=== PATIENT | male | born 1945 | race Caucasian/White ===

== ENCOUNTER 2016-07-22 11:23 | Emergency (ER) | payer MEDICARE ==
[~2016-07-22] VITALS: Ht 177.8 cm; Wt 72.8 kg
[~2016-07-22 11:23] MED LIST: ALBU1.25 NEB; ALBU6.7H INH; ASPI-496 PO; ASPI325T4 PO; ATOR40TA78 PO; CARV6.252 PO; CEFD300C37 PO; DOXY100C2 PO; DOXY100T PO; FAMO20TA7 PO; FLUT1DIS3 INH; GUAI400T26 PO; IPRA0.2S35 INH; LEVO500T33 PO; LEVO750T26 PO; LISI-167 PO; METH4TAB2 PO; MONT10TA9 PO; PRED5TAB PO; SIMV40TA3 PO
[2016-07-22] MEDS ORDERED: ALBUTEROL/IPRATROPIUM 2.5MG/0.5MG, 3 ML NPPB SCH (12:00)
[2016-07-22] MEDS ORDERED: ALBUTEROL/IPRATROPIUM 2.5MG/0.5MG, 3 ML ONE ×2 (12:20→12:31)
[2016-07-22] MEDS ORDERED: SODIUM CHLORIDE 0.9% 1,000ML IVBOLUS ONE (12:30)
[2016-07-22] MEDS ORDERED: SODIUM CHLORIDE FLUSH 10ML SYR IVF ONE (12:30)
[2016-07-22 13:16] LABS: BLOOD UREA NITROGEN 8 mg/dL (7-18)
[2016-07-22 13:20] LABS: IS PT STATUS REG ER OR PRE ER? YES
[2016-07-22 14:10] VITALS: BP 103/65
== END 2016-07-22 14:20 | disposition home or self-care (01) ==
LOC: ED 13:07
DX: J44.1 Chronic obstructive pulmonary disease with (acute) exacerbation (principal); J44.0 Chronic obstructive pulmonary disease with (acute) lower respiratory infection; J20.8 Acute bronchitis due to other specified organisms; I10 Essential (primary) hypertension; I25.810 Atherosclerosis of coronary artery bypass graft(s) without angina pectoris; Z95.1 Presence of aortocoronary bypass graft; Z88.8 Allergy status to other drugs, medicaments and biological substances
CPT/HCPCS: 36415; 71010; 80048; 82040; 83605; 83880; 84484; 85025; 87040; 93005; 94640; 96360; 99285; J7030; J7512; J7620

== ENCOUNTER → 2017-02-18 | Outpatient (CLI) | payer MEDICARE ==
[~2017-02-18] MED LIST changes: +ASPI325T17 PO; -ASPI325T4 PO; +AZIT250T PO; +CARV12.52 PO; +DOCU-131 PO; +DOXY100T10 PO; +FLUT1BLS INH; -GUAI400T26 PO; +GUAI400T66 PO; +GUAI600T31 PO; +IPRA3AMP NPPB; +IPRA3AMP PO; -LEVO500T33 PO; +LEVO500T47 PO; +LISI-170 PO; +PRED20TA PO
[2017-02-18 11:03] LABS: HEMATOCRIT 42.2 % (39.2-51.8); HEMOGLOBIN 13.6 g/dL (13.7-18.0); WHITE BLOOD COUNT 8.3 x10^3/uL (3.4-10)
[2017-02-18 11:15] LABS: ASPARTATE AMINO TRANSFERASE 21 U/L (15-37); BLOOD UREA NITROGEN 9 mg/dL (7-18)
== END | disposition home or self-care (01) ==
LOC: STAR 10:04
PROVIDERS: ATTEND Surgery
DX: Z01.818 Encounter for other preprocedural examination (principal)
CPT/HCPCS: 36415; 80053; 85025; 93005

== ENCOUNTER 2017-02-25 11:18 | Inpatient (IN) | payer MEDICARE ==
[2017-02-18 11:09] VITALS: BP 111/72
[~2017-02-25] VITALS: Ht 177.8 cm; Wt 76.5 kg
[~2017-02-25 11:18] MED LIST changes: +BUPIVACAINE/PF 0.5% ONE; +EPINEPHRINE 1 MG/ML, 1ML ONE; +HEPARIN 1,000 UNITS/ML, 10ML ONE; +PROTAMINE SULFATE 10 MG/ML, 5ML ONE; +THROMBIN 20,000 UNIT VIAL TP ONE; +THROMBIN 5,000 UNIT VIAL TP ONE
[2017-02-25] MEDS ORDERED: LIDOCAINE 1%, 2ML ONE (11:40)
[2017-02-25] MEDS ORDERED: LACTATED RINGERS 1,000 ML IV SCH (11:53)
[2017-02-25] MEDS ORDERED: MIDAZOLAM 10MG/2 ML ONE (12:07)
[2017-02-25] MEDS ORDERED: FENTANYL PF 250 MCG/5ML ONE (12:07)
[2017-02-25] MEDS ORDERED: ROCURONIUM 10 MG/ML,10ML ONE (12:09)
[2017-02-25] MEDS ORDERED: ONDANSETRON 2MG/ML, 2ML ONE (12:09)
[2017-02-25] MEDS ORDERED: NEOSTIGMINE 1 MG/ML, 10ML ONE (12:09)
[2017-02-25] MEDS ORDERED: PROPOFOL 10 MG/ML, 20ML ONE (12:09)
[2017-02-25] MEDS ORDERED: SUCCINYLCHOLINE 20 MG/ML, 10ML ONE (12:09)
[2017-02-25] MEDS ORDERED: DEXAMETHASONE 4 MG/ML, 1ML ONE (12:09)
[2017-02-25] MEDS ORDERED: CEFAZOLIN 1,000 MG ONE (12:09)
[2017-02-25] MEDS ORDERED: GLYCOPYRROLATE 0.2MG/1ML, 5ML ONE (12:09)
[2017-02-25] MEDS ORDERED: ALBUTEROL/IPRATROPIUM 2.5MG/0.5MG, 3 ML NPPB PRN ×2 (13:30→17:30)
[2017-02-25] MEDS ORDERED: ONDANSETRON 2MG/ML, 2ML IVPush PRN (13:30)
[2017-02-25] MEDS ORDERED: MEPERIDINE/PF 25MG/0.5ML IVPush PRN (13:30)
[2017-02-25] MEDS ORDERED: FENTANYL PF 100 MCG/2ML IV PRN (13:30)
[2017-02-25] MEDS ORDERED: EPHEDRINE 50 MG/ML, 1ML IVPush PRN (13:30)
[2017-02-25] MEDS ORDERED: ALBUTEROL SULFATE 2.5 MG/3 ML NPPB PRN (13:30)
[2017-02-25] MEDS ORDERED: LABETALOL 5MG/ML, 20ML IV PRN (13:30)
[2017-02-25] MEDS ORDERED: HYDROcodone/APAP 7.5-325MG/15ML UDC PO PRN (13:30)
[2017-02-25] MEDS ORDERED: MIDAZOLAM 1 MG/ML, 2ML IV PRN (13:30)
[2017-02-25] MEDS ORDERED: DIAZEPAM 5 MG/ML, 2ML IVPush PRN (13:30)
[2017-02-25] MEDS ORDERED: HYDROmorphone 1 MG/ML, 1ML IV PRN (13:30)
[2017-02-25] MEDS ORDERED: hydrALAzine 20 MG/ML, 1ML IV PRN (13:30)
[2017-02-25] MEDS ORDERED: ACETAMINOPHEN 325 MG TABLET PO PRN (13:30)
[2017-02-25] MEDS ORDERED: PROMETHAZINE 25 MG/ML, 1ML IV PRN (13:30)
[2017-02-25] MEDS ORDERED: OXYcodone 5 MG/5 ML ORAL.SOL UDC PO PRN (13:30)
[2017-02-25] MEDS ORDERED: METOPROLOL 1 MG/ML, 5ML IV PRN (13:30)
[2017-02-25] MEDS: LACTATED RINGERS 1,000 ML IV SCH (14:37)
[2017-02-25] MEDS: ALBUTEROL/IPRATROPIUM 2.5MG/0.5MG, 3 ML NPPB SCH (19:49)
[2017-02-25] MEDS: MONTELUKAST 10 MG TABLET PO SCH (20:18)
[2017-02-25] MEDS: ATORVASTATIN 40 MG TABLET PO SCH (20:18)
[2017-02-25] MEDS: CEFAZOLIN PMX 1GM/50ML 50 ML IVPB SCH (20:18)
[2017-02-26 04:00] VITALS: BP 102/44
[2017-02-26] MEDS: LACTATED RINGERS 1,000 ML IV SCH ×2 (04:49→15:44)
[2017-02-26] MEDS: CEFAZOLIN PMX 1GM/50ML 50 ML IVPB SCH (04:49)
[2017-02-26] MEDS ORDERED: ALBUTEROL/IPRATROPIUM 2.5MG/0.5MG, 3 ML NEB SCH (09:00)
[2017-02-26] MEDS: LISINOPRIL 10 MG TABLET PO SCH (09:00)
[2017-02-26] MEDS: CARVEDILOL 6.25 MG TABLET PO SCH (09:00)
[2017-02-26] MEDS: ALBUTEROL/IPRATROPIUM 2.5MG/0.5MG, 3 ML NPPB SCH ×3 (09:15→14:15)
[2017-02-26] MEDS: ENOXAPARIN 40 MG/0.4 ML SQ SCH (10:30)
[2017-02-26 10:51] VITALS: BP 112/66
[2017-02-26 13:37] VITALS: BP 107/63
[2017-02-26] MEDS: HYDROcodone/APAP 5/325 TABLET PO PRN (15:48)
[2017-02-26 18:58] VITALS: BP 100/62
[2017-02-26] MEDS: ATORVASTATIN 40 MG TABLET PO SCH (20:29)
[2017-02-26] MEDS: MONTELUKAST 10 MG TABLET PO SCH (20:29)
[2017-02-27 01:17] VITALS: BP 130/66
[2017-02-27] MEDS: LACTATED RINGERS 1,000 ML IV SCH (06:37)
[2017-02-27 07:35] VITALS: BP 121/71
[2017-02-27] MEDS: ALBUTEROL/IPRATROPIUM 2.5MG/0.5MG, 3 ML NPPB SCH ×3 (08:05→15:35)
[2017-02-27] MEDS: ENOXAPARIN 40 MG/0.4 ML SQ SCH (08:49)
[2017-02-27] MEDS ORDERED: FLUTICASONE/VILANTEROL 200-25MCG/INH INH SCH (09:00)
[2017-02-27] MEDS: LISINOPRIL 10 MG TABLET PO SCH (09:16)
[2017-02-27] MEDS: CARVEDILOL 6.25 MG TABLET PO SCH (09:16)
[2017-02-27 15:10] VITALS: BP 97/53
[2017-02-27] MEDS: HYDROcodone/APAP 5/325 TABLET PO PRN (16:06)
== END 2017-02-27 17:45 | disposition home or self-care (01) | DRG 268 ==
LOC: ORIP 11:18 → INTOOBSV 11:18 → EDSTATUS 12:00 → CCU 16:13 → OBSVTOIN 02-26 10:58 → 4NOR 02-26 11:01
PROVIDERS: ADMIT Surgery; ATTEND Surgery
PROC: B4101ZZ Fluoroscopy of Abdominal Aorta using Low Osmolar Contrast (ICD-10-PCS; 2017-02-25)
PROC: 04V03D6 (ICD-10-PCS; principal; 2017-02-25 12:00)
DX: I71.4 Abdominal aortic aneurysm, without rupture (principal); J96.20 Acute and chronic respiratory failure, unspecified whether with hypoxia or hypercapnia; J44.9 Chronic obstructive pulmonary disease, unspecified; E78.5 Hyperlipidemia, unspecified; I73.9 Peripheral vascular disease, unspecified; Z86.79 Personal history of other diseases of the circulatory system; Z87.01 Personal history of pneumonia (recurrent); Z87.891 Personal history of nicotine dependence
CPT/HCPCS: 34802; 34812; 34825; 36200; 36415; 75952; 75953; 86850; 86900; 87081; 94640; G0378; J0171; J0690; J1100; J1644; J1650; J2250; J2405; J2704; J2710; J2720; J3010; J3490; J7620; C1751; C1768; C1769; C1894; C2628; J0330; J7120

== ENCOUNTER 2017-07-12 15:13 | Inpatient (IN) | payer MEDICARE ==
[~2017-07-12] VITALS: Ht 179.1 cm; Wt 67.8 kg
[~2017-07-12 15:13] MED LIST changes: -BUPIVACAINE/PF 0.5% ONE; -EPINEPHRINE 1 MG/ML, 1ML ONE; -HEPARIN 1,000 UNITS/ML, 10ML ONE; -PROTAMINE SULFATE 10 MG/ML, 5ML ONE; -THROMBIN 20,000 UNIT VIAL TP ONE; -THROMBIN 5,000 UNIT VIAL TP ONE
[2017-07-12] MEDS ORDERED: ALBUTEROL SULFATE 2.5 MG/3 ML NPPB SCH (16:00)
[2017-07-12] MEDS ORDERED: ALBUTEROL SULFATE 2.5 MG/3 ML ONE (16:02)
[2017-07-12] MEDS ORDERED: ASPI-515 PO (16:48)
[2017-07-12 17:09] LABS: BASOPHILS # (AUTO) 0.03 x10^3/uL (0-0.1); BASOPHILS % (AUTO) 0 % (0-1); EOSINOPHILS # (AUTO) 0.06 x10^3/uL (0-0.4); EOSINOPHILS % (AUTO) 1 % (1-7); LYMPHOCYTES # (AUTO) 0.66 x10^3/uL (1-3.4); LYMPHOCYTES % (AUTO) 7 % (22-44); MD NO; MEAN CORPUSCULAR HEMOGLOBIN 29.8 pg (27.5-34.5); MEAN CORPUSCULAR HGB CONC 32.2 g/dL (33.2-36.2); MEAN CORPUSCULAR VOLUME 92.4 fL (81-97); MEAN PLATELET VOLUME 7.4 fL (7.4-10.4); MONOCYTES # (AUTO) 0.73 x10^3/uL (0.2-0.8); MONOCYTES % (AUTO) 8 % (2-9); NEUTROPHILS # (AUTO) 7.54 x10^3/uL (1.8-6.8); NEUTROPHILS % (AUTO) 84 % (42-75); PLATELET COUNT 161 x10^3/uL (130-400); RED BLOOD COUNT 4.43 x10^6/uL (4.38-5.82); RED CELL DISTRIBUTION WIDTH 14.1 % (9.4-14.8)
[2017-07-12 17:18] LABS: ALBUMIN 3.2 g/dL (3.4-5.0); ANION GAP 1 mmol/L (5-15); CALCIUM 8.6 mg/dL (8.5-10.1); CHLORIDE 98 mmol/L (98-107); CREATININE 0.65 mg/dL (0.7-1.3)
[2017-07-12 17:32] VITALS: BP 113/68
[2017-07-12] MEDS ORDERED: ACETAMINOPHEN 325 MG TABLET PO PRN (18:30)
[2017-07-12] MEDS ORDERED: ENOXAPARIN 40 MG/0.4 ML SQ SCH (18:30)
[2017-07-12] MEDS ORDERED: hydrALAzine 20 MG/ML, 1ML IVPush PRN (18:30)
[2017-07-12] MEDS ORDERED: ONDANSETRON ODT 4 MG PO PRN (18:30)
[2017-07-12] MEDS ORDERED: ONDANSETRON 2MG/ML, 2ML IVPush PRN (18:30)
[2017-07-12] MEDS: methylPREDNISolone SOD SUCC 125 MG/2 ML IVPush SCH (18:44)
[2017-07-12 19:04] VITALS: BP 110/71
[2017-07-12] MEDS ORDERED: ALBUTEROL/IPRATROPIUM 2.5MG/0.5MG, 3 ML NPPB PRN (20:00)
[2017-07-12] MEDS ORDERED: ALBUTEROL/IPRATROPIUM 2.5MG/0.5MG, 3 ML ONE (20:04)
[2017-07-12] MEDS: ALBUTEROL/IPRATROPIUM 2.5MG/0.5MG, 3 ML NPPB SCH (20:08)
[2017-07-12] MEDS ORDERED: MONTELUKAST 10 MG TABLET PO SCH (21:00)
[2017-07-12] MEDS ORDERED: ATORVASTATIN 40 MG TABLET PO SCH (21:00)
[2017-07-13 01:46] VITALS: BP 90/51
[2017-07-13] MEDS: methylPREDNISolone SOD SUCC 125 MG/2 ML IVPush SCH ×2 (02:31→11:31)
[2017-07-13 05:53] LABS: BASOPHILS % (AUTO) 0 % (0-1); EOSINOPHILS % (AUTO) 0 % (1-7); LYMPHOCYTES # (AUTO) 0.33 x10^3/uL (1-3.4); LYMPHOCYTES % (AUTO) 8 % (22-44); MD NO; MEAN CORPUSCULAR HEMOGLOBIN 30.1 pg (27.5-34.5); MEAN CORPUSCULAR HGB CONC 32.7 g/dL (33.2-36.2); MEAN CORPUSCULAR VOLUME 91.8 fL (81-97); MEAN PLATELET VOLUME 7.8 fL (7.4-10.4); MONOCYTES # (AUTO) 0.06 x10^3/uL (0.2-0.8); MONOCYTES % (AUTO) 1 % (2-9); NEUTROPHILS # (AUTO) 3.83 x10^3/uL (1.8-6.8); NEUTROPHILS % (AUTO) 91 % (42-75); PLATELET COUNT 158 x10^3/uL (130-400); RED BLOOD COUNT 4.13 x10^6/uL (4.38-5.82)
[2017-07-13 06:00] LABS: ANION GAP 4 mmol/L (5-15); CALCIUM 8.8 mg/dL (8.5-10.1); CHLORIDE 97 mmol/L (98-107); CREATININE 0.61 mg/dL (0.7-1.3)
[2017-07-13] MEDS: ALBUTEROL/IPRATROPIUM 2.5MG/0.5MG, 3 ML NPPB SCH ×2 (07:46→11:19)
[2017-07-13] MEDS ORDERED: MAGNESIUM SULFATE PMX 2GM/50ML 50 ML IV ONE (08:00)
[2017-07-13] MEDS ORDERED: SODIUM CHLORIDE 0.9%, 500ML IVBOLUS ONE (08:00)
[2017-07-13 08:05] VITALS: BP 90/55
[2017-07-13] MEDS ORDERED: CARVEDILOL 6.25 MG TABLET PO SCH (09:00)
[2017-07-13] MEDS ORDERED: ASPIRIN 81 MG TABLET EC PO SCH (09:00)
[2017-07-13] MEDS ORDERED: LISINOPRIL 10 MG TABLET PO SCH (09:00)
[2017-07-13] MEDS ORDERED: PRED20TA PO (10:22)
[2017-07-13 13:56] VITALS: BP 107/62
== END 2017-07-13 14:54 | disposition home or self-care (01) | DRG 189 ==
LOC: ED 16:48 → EDIP 17:00 → 3NE 17:28
PROVIDERS: ADMIT Hospitalist; ATTEND Hospitalist
DX: J96.00 Acute respiratory failure, unspecified whether with hypoxia or hypercapnia (principal); I95.9 Hypotension, unspecified; E83.42 Hypomagnesemia; J44.1 Chronic obstructive pulmonary disease with (acute) exacerbation; Z99.81 Dependence on supplemental oxygen; E78.5 Hyperlipidemia, unspecified; F12.90 Cannabis use, unspecified, uncomplicated; I10 Essential (primary) hypertension; I25.10 Atherosclerotic heart disease of native coronary artery without angina pectoris; I25.2 Old myocardial infarction; Z86.79 Personal history of other diseases of the circulatory system; Z90.89 Acquired absence of other organs; Z95.1 Presence of aortocoronary bypass graft; Z87.01 Personal history of pneumonia (recurrent); Z87.891 Personal history of nicotine dependence
CPT/HCPCS: 36415; 71045; 80048; 82040; 83605; 83735; 84100; 85025; 93005; 94640; 99285; J1650; J7613; J7620; J2930; J3475; J7040; J7512

== ENCOUNTER 2017-07-15 13:43 | Inpatient (IN) | payer MEDICARE ==
[~2017-07-15] VITALS: Ht 177.8 cm; Wt 67.6 kg
[~2017-07-15 13:43] MED LIST changes: +ASPI-515 PO
[2017-07-15] MEDS ORDERED: ONDANSETRON ODT 4 MG ONE (13:54)
[2017-07-15] MEDS ORDERED: ONDANSETRON ODT 4 MG PO ONE (14:00)
[2017-07-15] MEDS ORDERED: SODIUM CHLORIDE FLUSH 10ML SYR IVF ONE (14:00)
[2017-07-15 14:23] LABS: BASOPHILS % (AUTO) 0 % (0-1); EOSINOPHILS % (AUTO) 0 % (1-7); LYMPHOCYTES # (AUTO) 0.66 x10^3/uL (1-3.4); LYMPHOCYTES % (AUTO) 6 % (22-44); MD NO; MEAN CORPUSCULAR HEMOGLOBIN 30.1 pg (27.5-34.5); MEAN CORPUSCULAR HGB CONC 32.3 g/dL (33.2-36.2); MEAN CORPUSCULAR VOLUME 93.3 fL (81-97); MEAN PLATELET VOLUME 7.7 fL (7.4-10.4); MONOCYTES # (AUTO) 0.16 x10^3/uL (0.2-0.8); MONOCYTES % (AUTO) 1 % (2-9); NEUTROPHILS # (AUTO) 10.04 x10^3/uL (1.8-6.8); NEUTROPHILS % (AUTO) 92 % (42-75); PLATELET COUNT 223 x10^3/uL (130-400); RED BLOOD COUNT 4.56 x10^6/uL (4.38-5.82); RED CELL DISTRIBUTION WIDTH 14.3 % (9.4-14.8)
[2017-07-15 14:30] LABS: ALBUMIN 3.3 g/dL (3.4-5.0); ANION GAP 4 mmol/L (5-15); CALCIUM 8.7 mg/dL (8.5-10.1); CHLORIDE 99 mmol/L (98-107)
[2017-07-15 14:37] LABS: ALANINE AMINOTRANSFERASE 34 U/L (12-78); ALKALINE PHOSPHATASE 78 U/L (45-117); BILIRUBIN,TOTAL 0.6 mg/dL (0.2-1.0); CREATININE 0.69 mg/dL (0.7-1.3); TOTAL PROTEIN 6.9 g/dL (6.4-8.2); TROPONIN I < 0.015 ng/mL (0.000-0.045)
[2017-07-15] MEDS ORDERED: IPRA0.2S35 INH (14:43)
[2017-07-15] MEDS ORDERED: ALBU0.63 NEB (14:43)
[2017-07-15] MEDS ORDERED: trelegy ellipta (14:43)
[2017-07-15] MEDS ORDERED: VANCOMYCIN PER PHARMACY MC ONE (15:00)
[2017-07-15] MEDS ORDERED: PIPERACILLIN/TAZO/PMX 4.5GM 100 ML IVPB ONE (15:00)
[2017-07-15] MEDS ORDERED: ALBUTEROL/IPRATROPIUM 2.5MG/0.5MG, 3 ML ONE (15:00)
[2017-07-15] MEDS ORDERED: VANCOMYCIN 1,500 MG in SODIUM CHLORIDE 0.9% 250 ML IV ONE (15:00)
[2017-07-15] MEDS ORDERED: SODIUM CHLORIDE FLUSH 10ML SYR IVF PRN (15:30)
[2017-07-15] MEDS ORDERED: hydrALAzine 20 MG/ML, 1ML IVPush PRN (17:00)
[2017-07-15] MEDS ORDERED: ONDANSETRON 2MG/ML, 2ML IVPush PRN (17:00)
[2017-07-15] MEDS ORDERED: ACETAMINOPHEN 325 MG TABLET PO PRN (17:00)
[2017-07-15] MEDS: methylPREDNISolone SOD SUCC 125 MG/2 ML IVPush SCH ×2 (17:20→22:38)
[2017-07-15] MEDS: CEFTRIAXONE PMX 1GM/50ML 50 ML IV SCH (17:29)
[2017-07-15] MEDS: ENOXAPARIN 40 MG/0.4 ML SQ SCH (17:29)
[2017-07-15] MEDS ORDERED: methylPREDNISolone SOD SUCC 125 MG/2 ML IVPush ONE (18:00)
[2017-07-15 18:01] VITALS: BP 102/64
[2017-07-15] MEDS: DOXYCYCLINE 100 MG in DEXTROSE 5% 250 ML IV SCH (18:08)
[2017-07-15] MEDS: ALBUTEROL/IPRATROPIUM 2.5MG/0.5MG, 3 ML NPPB SCH ×2 (19:00→23:00)
[2017-07-15 19:48] VITALS: BP 102/67
[2017-07-16 01:18] VITALS: BP 96/50
[2017-07-16] MEDS: ALBUTEROL/IPRATROPIUM 2.5MG/0.5MG, 3 ML NPPB SCH ×6 (03:15→21:30)
[2017-07-16] MEDS: methylPREDNISolone SOD SUCC 125 MG/2 ML IVPush SCH ×4 (05:16→23:04)
[2017-07-16] MEDS: DOXYCYCLINE 100 MG in DEXTROSE 5% 250 ML IV SCH ×2 (05:16→18:12)
[2017-07-16 05:30] LABS: MEAN CORPUSCULAR HEMOGLOBIN 29.9 pg (27.5-34.5); MEAN CORPUSCULAR HGB CONC 32.1 g/dL (33.2-36.2); MEAN PLATELET VOLUME 7.9 fL (7.4-10.4); PLATELET COUNT 159 x10^3/uL (130-400); RED BLOOD COUNT 4.21 x10^6/uL (4.38-5.82); RED CELL DISTRIBUTION WIDTH 14.1 % (9.4-14.8)
[2017-07-16 05:35] LABS: ANION GAP 2 mmol/L (5-15); CALCIUM 8.9 mg/dL (8.5-10.1); CHLORIDE 99 mmol/L (98-107); CREATININE 0.64 mg/dL (0.7-1.3)
[2017-07-16 05:44] LABS: THYROID STIMULATING HORMONE 0.135 mIU/L (0.358-3.740)
[2017-07-16 05:58] LABS: MD YES
[2017-07-16 06:00] LABS: BAND#(MANUAL) 3.26 x10^3/uL; BANDS%(MANUAL) 32 % (0-7); LYMPH#(MANUAL) 0.31 x10^3/uL (1-3.4); LYMPHS% (MANUAL) 3 % (22-44); MONOS% (MANUAL) 2 % (2-9); SEG#(MANUAL) 6.43 x10^3/uL (1.8-6.8); SEGS% (MANUAL) 63 % (42-75)
[2017-07-16 06:01] LABS: <PLATELET ESTIMATE> ADEQUATE; <PLT MORPHOLOGY> NORMAL PLT MORPH; <RBC MORPHOLOGY> NORMAL
[2017-07-16 09:30] VITALS: BP 93/58
[2017-07-16] MEDS: GUAIFENESIN ER 600 MG TABLET PO SCH ×2 (13:56→20:17)
[2017-07-16 14:56] VITALS: BP 110/66
[2017-07-16] MEDS: CEFTRIAXONE PMX 1GM/50ML 50 ML IV SCH (16:48)
[2017-07-16 18:39] VITALS: BP 102/58
[2017-07-16] MEDS: ENOXAPARIN 40 MG/0.4 ML SQ SCH (20:17)
[2017-07-17 00:42] VITALS: BP_SYST 105; BP_SYST 90; BP_DIAS 47; BP_DIAS 57
[2017-07-17] MEDS: ALBUTEROL/IPRATROPIUM 2.5MG/0.5MG, 3 ML NPPB SCH ×6 (01:30→23:22)
[2017-07-17] MEDS: DOXYCYCLINE 100 MG in DEXTROSE 5% 250 ML IV SCH ×2 (04:47→18:10)
[2017-07-17] MEDS: methylPREDNISolone SOD SUCC 125 MG/2 ML IVPush SCH ×4 (04:49→22:52)
[2017-07-17 05:05] LABS: BASOPHILS % (AUTO) 0 % (0-1); EOSINOPHILS % (AUTO) 0 % (1-7); LYMPHOCYTES % (AUTO) 3 % (22-44); MD NO; MEAN CORPUSCULAR HEMOGLOBIN 29.5 pg (27.5-34.5); MEAN CORPUSCULAR HGB CONC 32.1 g/dL (33.2-36.2); MONOCYTES # (AUTO) 0.42 x10^3/uL (0.2-0.8); MONOCYTES % (AUTO) 4 % (2-9); NEUTROPHILS # (AUTO) 11.07 x10^3/uL (1.8-6.8); NEUTROPHILS % (AUTO) 94 % (42-75); PLATELET COUNT 173 x10^3/uL (130-400); RED BLOOD COUNT 3.83 x10^6/uL (4.38-5.82)
[2017-07-17 05:19] LABS: ANION GAP 1 mmol/L (5-15); CALCIUM 9.3 mg/dL (8.5-10.1); CHLORIDE 98 mmol/L (98-107)
[2017-07-17 05:20] LABS: CREATININE 0.53 mg/dL (0.7-1.3)
[2017-07-17 08:05] VITALS: BP 104/62
[2017-07-17] MEDS: GUAIFENESIN ER 600 MG TABLET PO SCH ×2 (09:39→20:07)
[2017-07-17 14:12] VITALS: BP 119/68
[2017-07-17] MEDS: CEFTRIAXONE PMX 1GM/50ML 50 ML IV SCH (17:38)
[2017-07-17 20:00] VITALS: BP 125/72
[2017-07-17] MEDS: ENOXAPARIN 40 MG/0.4 ML SQ SCH (20:07)
[2017-07-18 01:25] VITALS: BP 103/53
[2017-07-18] MEDS: DOXYCYCLINE 100 MG in DEXTROSE 5% 250 ML IV SCH (04:38)
[2017-07-18] MEDS: methylPREDNISolone SOD SUCC 125 MG/2 ML IVPush SCH (04:38)
[2017-07-18] MEDS: ALBUTEROL/IPRATROPIUM 2.5MG/0.5MG, 3 ML NPPB SCH ×6 (04:48→22:30)
[2017-07-18 05:14] LABS: BASOPHILS % (AUTO) 0 % (0-1); EOSINOPHILS % (AUTO) 0 % (1-7); LYMPHOCYTES # (AUTO) 0.24 x10^3/uL (1-3.4); LYMPHOCYTES % (AUTO) 2 % (22-44); MD NO; MEAN CORPUSCULAR HGB CONC 32.4 g/dL (33.2-36.2); MEAN CORPUSCULAR VOLUME 92.5 fL (81-97); MEAN PLATELET VOLUME 7.9 fL (7.4-10.4); MONOCYTES # (AUTO) 0.35 x10^3/uL (0.2-0.8); MONOCYTES % (AUTO) 4 % (2-9); NEUTROPHILS # (AUTO) 9.32 x10^3/uL (1.8-6.8); NEUTROPHILS % (AUTO) 94 % (42-75); PLATELET COUNT 207 x10^3/uL (130-400); RED BLOOD COUNT 3.78 x10^6/uL (4.38-5.82); RED CELL DISTRIBUTION WIDTH 14.3 % (9.4-14.8)
[2017-07-18 05:25] LABS: ANION GAP 2 mmol/L (5-15); CALCIUM 8.6 mg/dL (8.5-10.1); CHLORIDE 97 mmol/L (98-107); CREATININE 0.46 mg/dL (0.7-1.3)
[2017-07-18 09:05] VITALS: BP 111/63
[2017-07-18] MEDS: GUAIFENESIN ER 600 MG TABLET PO SCH ×2 (09:13→22:41)
[2017-07-18] MEDS: SODIUM CHLORIDE 0.9% 1,000 ML IV SCH (09:13)
[2017-07-18 14:45] VITALS: BP 113/62
[2017-07-18] MEDS: CEFTRIAXONE PMX 1GM/50ML 50 ML IV SCH (16:51)
[2017-07-18 19:41] VITALS: BP 116/63
[2017-07-18] MEDS: DOXYCYCLINE 100MG CAP PO SCH (22:41)
[2017-07-18] MEDS: ENOXAPARIN 40 MG/0.4 ML SQ SCH (22:42)
[2017-07-19 01:08] VITALS: BP 95/40
[2017-07-19] MEDS: SODIUM CHLORIDE 0.9% 1,000 ML IV SCH ×2 (01:43→19:51)
[2017-07-19] MEDS: ALBUTEROL/IPRATROPIUM 2.5MG/0.5MG, 3 ML NPPB SCH ×6 (02:53→22:33)
[2017-07-19] MEDS: ASPIRIN 81 MG TABLET EC PO SCH (05:36)
[2017-07-19 09:45] VITALS: BP 110/56
[2017-07-19] MEDS: DOXYCYCLINE 100MG CAP PO SCH ×2 (09:47→21:07)
[2017-07-19] MEDS: GUAIFENESIN ER 600 MG TABLET PO SCH ×2 (09:47→21:07)
[2017-07-19 14:35] VITALS: BP 119/64
[2017-07-19] MEDS: CEFTRIAXONE PMX 1GM/50ML 50 ML IV SCH (17:03)
[2017-07-19 18:34] VITALS: BP 137/73
[2017-07-19] MEDS: ENOXAPARIN 40 MG/0.4 ML SQ SCH (21:07)
[2017-07-20 03:14] VITALS: BP 127/80
[2017-07-20] MEDS: ALBUTEROL/IPRATROPIUM 2.5MG/0.5MG, 3 ML NPPB SCH ×6 (03:44→23:00)
[2017-07-20] MEDS: ASPIRIN 81 MG TABLET EC PO SCH (05:54)
[2017-07-20 05:56] LABS: ANION GAP 3 mmol/L (5-15); CALCIUM 8.7 mg/dL (8.5-10.1); CHLORIDE 96 mmol/L (98-107); CREATININE 0.39 mg/dL (0.7-1.3)
[2017-07-20] MEDS: SODIUM CHLORIDE 0.9% 1,000 ML IV SCH (06:30)
[2017-07-20 06:38] VITALS: BP 102/64
[2017-07-20 07:17] LABS: FIO2 60 %
[2017-07-20] MEDS: GUAIFENESIN ER 600 MG TABLET PO SCH ×2 (08:32→21:17)
[2017-07-20] MEDS: DOXYCYCLINE 100MG CAP PO SCH ×2 (08:32→21:18)
[2017-07-20 12:15] VITALS: BP 116/68
[2017-07-20] MEDS: CEFTRIAXONE PMX 1GM/50ML 50 ML IV SCH (17:53)
[2017-07-20 20:26] VITALS: BP 137/66
[2017-07-20] MEDS: ENOXAPARIN 40 MG/0.4 ML SQ SCH (21:18)
[2017-07-21 00:42] VITALS: BP 115/71
[2017-07-21] MEDS: ALBUTEROL/IPRATROPIUM 2.5MG/0.5MG, 3 ML NPPB SCH ×6 (03:00→23:00)
[2017-07-21] MEDS: ASPIRIN 81 MG TABLET EC PO SCH (05:33)
[2017-07-21 06:55] VITALS: BP 100/61
[2017-07-21] MEDS: DOXYCYCLINE 100MG CAP PO SCH (09:00)
[2017-07-21] MEDS: GUAIFENESIN ER 600 MG TABLET PO SCH ×2 (09:00→21:26)
[2017-07-21 13:37] VITALS: BP 100/61
[2017-07-21] MEDS: NYSTATIN 500,000 UNITS/5 ML UDC PO SCH ×2 (15:22→17:49)
[2017-07-21 18:42] VITALS: BP 109/75
[2017-07-21] MEDS: ENOXAPARIN 40 MG/0.4 ML SQ SCH (21:26)
[2017-07-21] MEDS: SODIUM CHLORIDE 0.9% 1,000 ML IV SCH (21:42)
[2017-07-22] MEDS: ALBUTEROL/IPRATROPIUM 2.5MG/0.5MG, 3 ML NPPB SCH ×4 (03:00→14:30)
[2017-07-22 03:08] VITALS: BP 101/60
[2017-07-22] MEDS: ASPIRIN 81 MG TABLET EC PO SCH (06:12)
[2017-07-22] MEDS: NYSTATIN 500,000 UNITS/5 ML UDC PO SCH ×2 (06:13→11:23)
[2017-07-22 07:30] VITALS: BP 116/66
[2017-07-22] MEDS: GUAIFENESIN ER 600 MG TABLET PO SCH (08:49)
[2017-07-22] MEDS ORDERED: ASPI-621 PO (12:44)
[2017-07-22] MEDS ORDERED: NYST1000 PO (12:44)
[2017-07-22] MEDS ORDERED: CARV12.52 PO (12:44)
[2017-07-22 13:00] VITALS: BP 114/77
== END 2017-07-22 16:35 | disposition home or self-care (01) | DRG 177 ==
LOC: ED 15:00 → EDIP 15:10 → 4EST 16:02 → DCLOUNGE 07-22 16:21
PROVIDERS: ADMIT Internal Medicine; ATTEND Internal Medicine
DX: J15.6 Pneumonia due to other Gram-negative bacteria (principal); J96.01 Acute respiratory failure with hypoxia; J96.02 Acute respiratory failure with hypercapnia; E44.0 Moderate protein-calorie malnutrition; J44.0 Chronic obstructive pulmonary disease with (acute) lower respiratory infection; J44.1 Chronic obstructive pulmonary disease with (acute) exacerbation; Z99.81 Dependence on supplemental oxygen; E78.5 Hyperlipidemia, unspecified; F12.10 Cannabis abuse, uncomplicated; I10 Essential (primary) hypertension; I25.10 Atherosclerotic heart disease of native coronary artery without angina pectoris; D72.829 Elevated white blood cell count, unspecified; I25.2 Old myocardial infarction; Z71.51 Drug abuse counseling and surveillance of drug abuser; Z82.5 Family history of asthma and other chronic lower respiratory diseases; Z86.79 Personal history of other diseases of the circulatory system; Z95.1 Presence of aortocoronary bypass graft; Z87.440 Personal history of urinary (tract) infections; Z90.89 Acquired absence of other organs; Z88.7 Allergy status to serum and vaccine; Z68.21 Body mass index [BMI] 21.0-21.9, adult
CPT/HCPCS: 36415; 36600; 71045; 80048; 80053; 82803; 83605; 83735; 83880; 84100; 84145; 84443; 84484; 85025; 87040; 87070; 87205; 93005; 94640; J0696; J1650; J2543; J7060; J7620; Q0162; J2930; J7030

== ENCOUNTER 2017-08-12 09:19 | Emergency (ER) | payer MEDICARE ==
[~2017-08-12] VITALS: Ht 177.8 cm; Wt 64.0 kg
[~2017-08-12 09:19] MED LIST changes: +ALBU0.63 NEB; +ASPI-621 PO; +NYST1000 PO; +trelegy ellipta
[2017-08-12 10:04] VITALS: BP 106/61
== END 2017-08-12 10:32 | disposition home or self-care (01) ==
LOC: ED 10:05
DX: L02.416 Cutaneous abscess of left lower limb (principal); J44.9 Chronic obstructive pulmonary disease, unspecified; I25.2 Old myocardial infarction; I25.10 Atherosclerotic heart disease of native coronary artery without angina pectoris; I71.3 Abdominal aortic aneurysm, ruptured; I10 Essential (primary) hypertension
CPT/HCPCS: 99282

== ENCOUNTER 2017-08-14 08:40 | Emergency (ER) | payer MEDICARE ==
[~2017-08-14] VITALS: Ht 177.8 cm; Wt 67.3 kg
[2017-08-14 08:45] VITALS: BP 129/74
== END 2017-08-14 10:33 | disposition home or self-care (01) ==
LOC: ED 10:20
DX: L02.416 Cutaneous abscess of left lower limb (principal); Z87.891 Personal history of nicotine dependence; J44.9 Chronic obstructive pulmonary disease, unspecified; I25.2 Old myocardial infarction; I10 Essential (primary) hypertension
CPT/HCPCS: 99281; 99283

== ENCOUNTER 2017-09-29 10:46 | Emergency (ER) | payer MEDICARE ==
[~2017-09-29] VITALS: Ht 177.8 cm; Wt 65.0 kg
[~2017-09-29 10:46] MED LIST changes: -IPRA3AMP NPPB; -IPRA3AMP PO; +IPRA3AMP30 NPPB; +IPRA3AMP30 PO
[2017-09-29 10:49] VITALS: BP 119/75
[2017-09-29] MEDS ORDERED: LIDOCAINE-MPF 1%, 2ML ONE (11:28)
[2017-09-29] MEDS ORDERED: LIDOCAINE-MPF 1%, 5ML INFIL ONE (11:30)
== END 2017-09-29 12:28 | disposition home or self-care (01) ==
LOC: ED 11:44
DX: L02.416 Cutaneous abscess of left lower limb (principal); I10 Essential (primary) hypertension; I25.2 Old myocardial infarction; J44.9 Chronic obstructive pulmonary disease, unspecified
CPT/HCPCS: 10060; 99283

== ENCOUNTER 2017-10-13 10:02 | Inpatient (IN) | payer MEDICARE ==
[~2017-10-13] VITALS: Ht 177.8 cm; Wt 67.1 kg
[2017-10-13] MEDS ORDERED: SODIUM CHLORIDE FLUSH 10ML SYR IVF ONE (10:30)
[2017-10-13] MEDS ORDERED: SODIUM CHLORIDE 0.9% 1,000ML IVBOLUS ONE (10:30)
[2017-10-13 10:31] LABS: BASOPHILS # (AUTO) 0.01 x10^3/uL (0-0.1); BASOPHILS % (AUTO) 0 % (0-1); EOSINOPHILS # (AUTO) 0.23 x10^3/uL (0-0.4); EOSINOPHILS % (AUTO) 2 % (1-7); LYMPHOCYTES # (AUTO) 0.89 x10^3/uL (1-3.4); LYMPHOCYTES % (AUTO) 9 % (22-44); MD NO; MEAN CORPUSCULAR HEMOGLOBIN 30.5 pg (27.5-34.5); MEAN CORPUSCULAR VOLUME 92.5 fL (81-97); MEAN PLATELET VOLUME 7.5 fL (7.4-10.4); MONOCYTES # (AUTO) 0.67 x10^3/uL (0.2-0.8); MONOCYTES % (AUTO) 7 % (2-9); NEUTROPHILS % (AUTO) 82 % (42-75); PLATELET COUNT 197 x10^3/uL (130-400); RED BLOOD COUNT 4.16 x10^6/uL (4.38-5.82)
[2017-10-13 10:43] LABS: ALANINE AMINOTRANSFERASE 29 U/L (12-78); ALBUMIN 3.2 g/dL (3.4-5.0); ANION GAP 3 mmol/L (5-15); CALCIUM 8.5 mg/dL (8.5-10.1); CHLORIDE 99 mmol/L (98-107); CREATININE 0.81 mg/dL (0.7-1.3)
[2017-10-13 10:47] LABS: ALKALINE PHOSPHATASE 63 U/L (45-117); BILIRUBIN,TOTAL 0.3 mg/dL (0.2-1.0); TROPONIN I < 0.015 ng/mL (0.000-0.045)
[2017-10-13] MEDS ORDERED: FLUT1DIS3 INH (10:55)
[2017-10-13] MEDS ORDERED: SULF1TAB24 PO (11:02)
[2017-10-13] MEDS ORDERED: CEPH-368 PO (11:02)
[2017-10-13 11:47] LABS: INTERNATIONAL NORMALIZED RATIO 0.97 (0.93-1.1); PROTHROMBIN TIME 10.1 Seconds (9.6-11.5)
[2017-10-13 11:54] LABS: MICROSCOPIC AUTO
[2017-10-13 11:59] LABS: CULTURE INDICATED? YES
[2017-10-13] MEDS ORDERED: SODIUM CHLORIDE 0.9% 1,000 ML IV ONE (13:00)
[2017-10-13 14:21] VITALS: BP 90/55
[2017-10-13] MEDS ORDERED: IPRATROPIUM 0.5 MG/2.5 ML INHA HHN PRN (16:00)
[2017-10-13] MEDS ORDERED: ALBUTEROL SULFATE 2.5 MG/3 ML HHN PRN (16:00)
[2017-10-13] MEDS: SODIUM CHLORIDE 0.9% 1,000 ML IV SCH ×2 (16:17→22:29)
[2017-10-13] MEDS ORDERED: ALBUTEROL/IPRATROPIUM 2.5MG/0.5MG, 3 ML NPPB PRN (17:00)
[2017-10-13] MEDS ORDERED: OMNIPAQUE 350 MG/ML, 100ML BOTTLE ONE (17:01)
[2017-10-13 19:05] VITALS: BP 91/45
[2017-10-13] MEDS: ALBUTEROL/IPRATROPIUM 2.5MG/0.5MG, 3 ML NPPB SCH (19:18)
[2017-10-13] MEDS ORDERED: ATORVASTATIN 40 MG TABLET PO SCH (21:00)
[2017-10-14 03:06] VITALS: BP 95/61
[2017-10-14] MEDS: SODIUM CHLORIDE 0.9% 1,000 ML IV SCH ×2 (05:03→11:16)
[2017-10-14] MEDS ORDERED: ASPIRIN 81 MG TABLET EC PO SCH (06:00)
[2017-10-14] MEDS: ALBUTEROL/IPRATROPIUM 2.5MG/0.5MG, 3 ML NPPB SCH ×3 (07:10→14:38)
[2017-10-14 07:42] VITALS: BP 102/59
[2017-10-14 08:38] VITALS: BP 103/60
[2017-10-14] MEDS ORDERED: MONTELUKAST 10 MG TABLET PO SCH (09:00)
[2017-10-14] MEDS ORDERED: ALBUTEROL/IPRATROPIUM 2.5MG/0.5MG, 3 ML NPPB SCH ×2 (09:00→16:00)
[2017-10-14] MEDS ORDERED: CARVEDILOL 3.125 MG TABLET PO SCH (09:00)
[2017-10-14 09:49] LABS: ANION GAP 3 mmol/L (5-15); CALCIUM 7.9 mg/dL (8.5-10.1); CHLORIDE 102 mmol/L (98-107); CREATININE 0.53 mg/dL (0.7-1.3)
[2017-10-14 09:52] LABS: BASOPHILS # (AUTO) 0.03 x10^3/uL (0-0.1); BASOPHILS % (AUTO) 0 % (0-1); EOSINOPHILS # (AUTO) 0.24 x10^3/uL (0-0.4); EOSINOPHILS % (AUTO) 3 % (1-7); LYMPHOCYTES # (AUTO) 0.57 x10^3/uL (1-3.4); LYMPHOCYTES % (AUTO) 8 % (22-44); MD NO; MEAN CORPUSCULAR HEMOGLOBIN 29.4 pg (27.5-34.5); MEAN CORPUSCULAR HGB CONC 32.2 g/dL (33.2-36.2); MEAN CORPUSCULAR VOLUME 91.6 fL (81-97); MEAN PLATELET VOLUME 7.6 fL (7.4-10.4); MONOCYTES # (AUTO) 0.44 x10^3/uL (0.2-0.8); MONOCYTES % (AUTO) 6 % (2-9); NEUTROPHILS # (AUTO) 5.97 x10^3/uL (1.8-6.8); NEUTROPHILS % (AUTO) 82 % (42-75); PLATELET COUNT 180 x10^3/uL (130-400); RED BLOOD COUNT 4.11 x10^6/uL (4.38-5.82); RED CELL DISTRIBUTION WIDTH 13.8 % (9.4-14.8)
[2017-10-14 15:59] VITALS: BP 115/71
== END 2017-10-14 17:00 | disposition home or self-care (01) | DRG 315 ==
LOC: ED 12:50 → 4EST 12:58 → DCLOUNGE 10-14 16:37
PROVIDERS: ADMIT Hospitalist; ATTEND Hospitalist
DX: I95.9 Hypotension, unspecified (principal); J96.10 Chronic respiratory failure, unspecified whether with hypoxia or hypercapnia; D64.9 Anemia, unspecified; E78.5 Hyperlipidemia, unspecified; I10 Essential (primary) hypertension; I73.9 Peripheral vascular disease, unspecified; R79.1 Abnormal coagulation profile; J44.9 Chronic obstructive pulmonary disease, unspecified; Z86.79 Personal history of other diseases of the circulatory system; Z87.891 Personal history of nicotine dependence; Z95.1 Presence of aortocoronary bypass graft; Z99.81 Dependence on supplemental oxygen
CPT/HCPCS: 36415; 71045; 71275; 74174; 80048; 80053; 81001; 82040; 83605; 84145; 84484; 85025; 85379; 85610; 85730; 87086; 93005; 94640; 99285; J7620; Q9967; J7030

== ENCOUNTER → 2018-01-19 | Outpatient (CLI) | payer MEDICARE ==
[~2018-01-19] MED LIST changes: +ATOR-2 PO; +CEPH-368 PO; +LISI2.5T PO; +SULF-169 PO; +SULF1TAB24 PO; +TICA90TA PO
== END | disposition home or self-care (01) ==
LOC: CFH 14:24
PROVIDERS: ATTEND Internal Medicine Cardiovascular Disease
DX: I35.8 Other nonrheumatic aortic valve disorders (principal); I42.9 Cardiomyopathy, unspecified; I25.2 Old myocardial infarction; I10 Essential (primary) hypertension; E78.5 Hyperlipidemia, unspecified; J44.9 Chronic obstructive pulmonary disease, unspecified; Z95.1 Presence of aortocoronary bypass graft; Z87.891 Personal history of nicotine dependence; Z99.81 Dependence on supplemental oxygen
CPT/HCPCS: 93306

== ENCOUNTER → 2018-07-10 | Outpatient (CLI) | payer MEDICARE ==
[~2018-07-10] MED LIST changes: -ASPI-621 PO; +ASPI81TA45 PO; +AZIT500T5 PO; +CARV6.2512 PO; +CEFP200T PO
== END | disposition home or self-care (01) ==
LOC: PETCFH 13:17
PROVIDERS: ATTEND Nurse Practitioner Family
DX: J43.9 Emphysema, unspecified (principal); I70.90 Unspecified atherosclerosis; N28.1 Cyst of kidney, acquired
CPT/HCPCS: 78815; A9552

== ENCOUNTER → 2019-03-26 | Outpatient (CLI) | payer MEDICARE ==
[~2019-03-26] MED LIST changes: -ALBU6.7H INH; +ALBU6.7H8 INH; +AZIT500T10 PO; -AZIT500T5 PO; -DOXY100T10 PO; +DOXY100T23 PO
== END | disposition home or self-care (01) ==
LOC: CVU 11:51
PROVIDERS: ATTEND Internal Medicine Cardiovascular Disease
DX: I71.4 Abdominal aortic aneurysm, without rupture (principal); I25.10 Atherosclerotic heart disease of native coronary artery without angina pectoris; I42.9 Cardiomyopathy, unspecified; Z95.1 Presence of aortocoronary bypass graft; E78.5 Hyperlipidemia, unspecified; I11.9 Hypertensive heart disease without heart failure
CPT/HCPCS: 93306; 93978

== ENCOUNTER → 2019-04-20 | Outpatient (CLI) | payer MEDICARE ==
[~2019-04-20] MED LIST changes: +CLOP75TA52 PO; -GUAI400T66 PO; +GUAI400T81 PO; +LORA2TAB99 PO; +MONT10TA11 PO; -MONT10TA9 PO; +SIMV40TA20 PO; -SIMV40TA3 PO
== END | disposition home or self-care (01) ==
LOC: CFH 16:12
PROVIDERS: ATTEND Nurse Practitioner Family
DX: J96.11 Chronic respiratory failure with hypoxia (principal); J44.1 Chronic obstructive pulmonary disease with (acute) exacerbation; J84.10 Pulmonary fibrosis, unspecified
CPT/HCPCS: 71046

== ENCOUNTER 2019-04-22 14:54 | Emergency (ER) | payer MEDICARE ==
[~2019-04-22] VITALS: Ht 177.8 cm; Wt 78.0 kg
[~2019-04-22 14:54] MED LIST changes: -CLOP75TA52 PO; -LORA2TAB99 PO
--- NOTE | 2019-04-22 14:57 | NUR ---
PATIENT BROUGHT IN BY [facility] FROM WITH CHIEF COMPLAINT OF SOB, SPO2 82 %. EARLIER TODAY EMS RESPONDED TO PATIENTS RESIDENCE FOR LBP/RIB/CP. HOWEVER PATIENT DECIDED TO NOT SEEK EVALUATION AND SIGNS AMA. THIS AFTERNOON EMS RESPONDED FOR SOB. BREATHING TREATMENT X1 ADMINISTERED. FAMILY AT BEDSIDE TO ENCOUORAGE EVALUATION. PATIENT IS ALERT, ORIENTED, WARM AND DRY. ABLE TO SPEAK FULL SENTANCES.
[2019-04-22] MEDS ORDERED: LORA2TAB99 PO (15:15)
[2019-04-22] MEDS ORDERED: CLOP75TA52 PO (15:15)
--- NOTE | 2019-04-22 15:16 | NUR ---
RT attempted x1 @1183
[2019-04-22] MEDS ORDERED: SODIUM CHLORIDE FLUSH 10ML SYR IVF ONE (15:30)
[2019-04-22] MEDS ORDERED: ALBUTEROL/IPRATROPIUM 2.5MG/0.5MG, 3 ML NPPB SCH (15:30)
[2019-04-22 15:53] LABS: BASOPHILS # (AUTO) 0.01 x10^3/uL (0-0.1); BASOPHILS % (AUTO) 0 % (0-1); EOSINOPHILS # (AUTO) 0.04 x10^3/uL (0-0.4); EOSINOPHILS % (AUTO) 0 % (1-7); LYMPHOCYTES # (AUTO) 0.47 x10^3/uL (1-3.4); LYMPHOCYTES % (AUTO) 5 % (22-44); MD NO; MEAN CORPUSCULAR HEMOGLOBIN 30.3 pg (27.5-34.5); MEAN CORPUSCULAR HGB CONC 32.2 g/dL (33.2-36.2); MEAN CORPUSCULAR VOLUME 93.9 fL (81-97); MONOCYTES # (AUTO) 0.68 x10^3/uL (0.2-0.8); MONOCYTES % (AUTO) 7 % (2-9); NEUTROPHILS # (AUTO) 8.88 x10^3/uL (1.8-6.8); NEUTROPHILS % (AUTO) 88 % (42-75); PLATELET COUNT 131 x10^3/uL (130-400); RED BLOOD COUNT 3.59 x10^6/uL (4.38-5.82); RED CELL DISTRIBUTION WIDTH 14.2 % (9.4-14.8)
[2019-04-22 16:02] LABS: ALANINE AMINOTRANSFERASE 36 U/L (12-78); ALBUMIN 2.8 g/dL (3.4-5.0); ANION GAP 3 mmol/L (5-15); CALCIUM 8.2 mg/dL (8.5-10.1); CHLORIDE 94 mmol/L (98-107)
[2019-04-22 16:07] LABS: ALKALINE PHOSPHATASE 82 U/L (45-117); BILIRUBIN,TOTAL 0.5 mg/dL (0.2-1.0); TOTAL PROTEIN 5.8 g/dL (6.4-8.2); TROPONIN I < 0.015 ng/mL (0.000-0.045)
--- NOTE | 2019-04-22 16:30 | NUR ---
PT RESTING IN BED, CALL LIGHT IN REACH. FAMILY AT BEDSIDE.
--- NOTE | 2019-04-22 17:52 | NUR ---
SARAN HADDAD AT BEDSIDE TO DISCUSS POC
[2019-04-22 19:51] VITALS: BP 94/56
--- NOTE | 2019-04-22 19:51 | NUR ---
Family has arrived. Pt will be d/c in care of family. Family states they have brought O2 for pt to use on the way home.
== END 2019-04-22 19:54 | disposition home or self-care (01) ==
LOC: ED 19:45
DX: J43.9 Emphysema, unspecified (principal); R94.31 Abnormal electrocardiogram [ECG] [EKG]; I25.2 Old myocardial infarction; I25.10 Atherosclerotic heart disease of native coronary artery without angina pectoris; Z95.1 Presence of aortocoronary bypass graft; I10 Essential (primary) hypertension
CPT/HCPCS: 36600; 71045; 80053; 82803; 83605; 83880; 84484; 85025; 87040; 93005; 99285

== ENCOUNTER 2019-11-09 15:58 | Inpatient (IN) | payer MEDICARE ==
[~2019-11-09] VITALS: Ht 179.1 cm; Wt 81.4 kg
[~2019-11-09 15:58] MED LIST changes: +CLOP75TA52 PO; +LISI5TAB7 PO; +LORA2TAB99 PO
[2019-11-09 17:25] LABS: ALANINE AMINOTRANSFERASE 32 U/L (12-78); ALBUMIN 2.8 g/dL (3.4-5.0); CALCIUM 9.1 mg/dL (8.5-10.1); CREATININE 0.59 mg/dL (0.7-1.3)
--- NOTE | 2019-11-09 17:25 | NUR ---
Pt reports sob and not feeling well. Pt reports that he ran out of his ventolin and does not have a pcp so does not get refills unless he comes to the ER. Pt reports he smokes 1/2 pack a day would smoke more but has to make them last since he lives [place]. Pt reports he thinks he has covid as well. Pt has some expiratory wheezing. Pt reports that he has trouble walking long distances.
[2019-11-09 17:38] LABS: ANION GAP 3 mmol/L (5-15); CHLORIDE 98 mmol/L (98-107)
[2019-11-09 17:40] LABS: ALKALINE PHOSPHATASE 88 U/L (45-117); BILIRUBIN,TOTAL 0.4 mg/dL (0.2-1.0)
[2019-11-09 17:41] LABS: TOTAL PROTEIN 6.2 g/dL (6.4-8.2)
[2019-11-09 17:48] LABS: BASOPHILS # (AUTO) 0.04 x10^3/uL (0-0.1); BASOPHILS % (AUTO) 0 % (0-1); EOSINOPHILS # (AUTO) 0.38 x10^3/uL (0-0.4); EOSINOPHILS % (AUTO) 3 % (1-7); LYMPHOCYTES # (AUTO) 0.55 x10^3/uL (1-3.4); LYMPHOCYTES % (AUTO) 4 % (22-44); MD NO; MEAN CORPUSCULAR HGB CONC 31.2 g/dL (33.2-36.2); MEAN CORPUSCULAR VOLUME 89.9 fL (81-97); MEAN PLATELET VOLUME 7.7 fL (7.4-10.4); MONOCYTES # (AUTO) 0.82 x10^3/uL (0.2-0.8); MONOCYTES % (AUTO) 7 % (2-9); NEUTROPHILS # (AUTO) 10.65 x10^3/uL (1.8-6.8); NEUTROPHILS % (AUTO) 86 % (42-75); PLATELET COUNT 232 x10^3/uL (130-400); RED BLOOD COUNT 4.08 x10^6/uL (4.38-5.82); RED CELL DISTRIBUTION WIDTH 15.1 % (9.4-14.8)
--- NOTE | 2019-11-09 18:00 | NUR ---
Wound cleaned and dressed
[2019-11-09 18:02] LABS: PH, VENOUS 7.238 pH (7.320-7.420)
[2019-11-09] MEDS ORDERED: SILVER NITRATE STICK TP ONE ×2 (18:57→19:00)
[2019-11-09] MEDS ORDERED: LIDOCAINE-MPF 1%, 5ML ONE (18:57)
[2019-11-09] MEDS ORDERED: LIDOCAINE 1%, 10ML INFIL ONE (19:00)
--- NOTE | 2019-11-09 19:00 | NUR ---
pt given warm blanket and pillow.
[2019-11-09] MEDS ORDERED: morphine SULFATE 10 MG/ML, 1ML IVPush PRN (20:00)
[2019-11-09] MEDS ORDERED: ACETAMINOPHEN 325 MG TABLET PO PRN ×2 (20:00→22:00)
[2019-11-09] MEDS ORDERED: TRAZODONE 50MG TABLET PO PRN (20:00)
[2019-11-09] MEDS ORDERED: ONDANSETRON 2MG/ML, 2ML IVPush PRN (20:00)
[2019-11-09] MEDS ORDERED: hydrALAzine 20 MG/ML, 1ML IVPush PRN (20:00)
[2019-11-09] MEDS ORDERED: DOCUSATE 100 MG CAPSULE PO PRN (20:00)
--- NOTE | 2019-11-09 20:15 | NUR ---
Veronica CLIFTON placing silver nitrate on wound, pt toleratign well and new dressing applied.
--- NOTE | 2019-11-09 20:20 | NUR ---
Social work at bedside with family.
--- NOTE | 2019-11-09 20:40 | NUR ---
Pt given meal tray and hydration
--- NOTE | 2019-11-09 20:55 | NUR ---
Reviewed sepsis sheet with MD vines and at this time MD does not believe pt is septic and will hold off on blood cultures and abx at this time.
--- NOTE | 2019-11-09 21:01 | NUR ---
Report to radha Lipscomb pt meets sepsis, ER does not want to do abx or cultures. to document on chart specific reason.
--- NOTE | 2019-11-09 21:26 | NUR ---
(Kristen Sage cell) [phone] (home phone) Jessica Darling (daughter) [phone] okay to call at any time if needed. Please pass number to oncologist in AM.
[2019-11-09] MEDS ORDERED: VANCOMYCIN PER PHARMACY MC PRN (21:30)
--- NOTE | 2019-11-09 21:31 | NUR ---
spoke with family and gave them update of POC and Ezio HEBERT at bedside to give update and floor phone number provided.
[2019-11-09] MEDS ORDERED: SODIUM CHLORIDE 0.9% 1,000 ML IV SCH (21:33)
[2019-11-09] MEDS ORDERED: PHARMACOKINETIC MONITORING MC PRN (22:00)
[2019-11-09] MEDS: CARVEDILOL 6.25 MG TABLET PO SCH (22:00)
[2019-11-09] MEDS ORDERED: ONDANSETRON ODT 4 MG PO PRN (22:00)
[2019-11-09] MEDS ORDERED: BISACODYL 10 MG SUPP PR PRN (22:00)
[2019-11-09] MEDS ORDERED: OXYcodone IR 5MG TABLET PO PRN (22:00)
[2019-11-09] MEDS ORDERED: POLYETHYLENE GLYCOL 17 GM PACKET PO PRN (22:00)
[2019-11-09 22:01] VITALS: BP 83/53
[2019-11-09] MEDS: HEPARIN 5,000 UNITS/ML, 1ML SQ SCH (22:18)
[2019-11-09] MEDS: FERROUS SULFATE 325 MG TABLET PO SCH (22:18)
[2019-11-09] MEDS: AMPICILLIN/SULBACTAM 3 GM in SODIUM CHLORIDE 0.9% 100 ML IV SCH (22:18)
[2019-11-09] MEDS: SODIUM CHLORIDE 0.9% 1,000 ML IV SCH (22:55)
[2019-11-09] MEDS ORDERED: VANCOMYCIN 1,600 MG in SODIUM CHLORIDE 0.9% 250 ML IV ONE (23:00)
[2019-11-10 02:39] VITALS: BP 93/50
[2019-11-10] MEDS: SODIUM CHLORIDE 0.9% 1,000 ML IV SCH (03:57)
[2019-11-10] MEDS: AMPICILLIN/SULBACTAM 3 GM in SODIUM CHLORIDE 0.9% 100 ML IV SCH ×4 (04:17→21:35)
[2019-11-10 04:44] LABS: CALCIUM 8.7 mg/dL (8.5-10.1)
[2019-11-10 04:46] LABS: CREATININE 0.63 mg/dL (0.7-1.3)
[2019-11-10 04:52] LABS: BASOPHILS # (AUTO) 0.02 x10^3/uL (0-0.1); BASOPHILS % (AUTO) 0 % (0-1); EOSINOPHILS # (AUTO) 0.04 x10^3/uL (0-0.4); EOSINOPHILS % (AUTO) 1 % (1-7); LYMPHOCYTES % (AUTO) 8 % (22-44); MD NO; MEAN CORPUSCULAR HEMOGLOBIN 27.7 pg (27.5-34.5); MEAN CORPUSCULAR HGB CONC 30.5 g/dL (33.2-36.2); MEAN CORPUSCULAR VOLUME 90.9 fL (81-97); MEAN PLATELET VOLUME 7.4 fL (7.4-10.4); MONOCYTES # (AUTO) 0.88 x10^3/uL (0.2-0.8); MONOCYTES % (AUTO) 11 % (2-9); NEUTROPHILS # (AUTO) 6.37 x10^3/uL (1.8-6.8); NEUTROPHILS % (AUTO) 81 % (42-75); PLATELET COUNT 215 x10^3/uL (130-400); RED BLOOD COUNT 3.36 x10^6/uL (4.38-5.82); RED CELL DISTRIBUTION WIDTH 15.1 % (9.4-14.8)
[2019-11-10 05:03] LABS: CHLORIDE 100 mmol/L (98-107)
[2019-11-10 05:08] LABS: ANION GAP 0 mmol/L (5-15)
[2019-11-10] MEDS ORDERED: ASPIRIN 81 MG TABLET EC PO SCH (06:00)
[2019-11-10] MEDS: HEPARIN 5,000 UNITS/ML, 1ML SQ SCH ×3 (06:41→21:37)
[2019-11-10 07:36] VITALS: BP 93/57
[2019-11-10] MEDS: SENNA/DOCUSATE TABLET PO SCH (08:10)
[2019-11-10] MEDS: FERROUS SULFATE 325 MG TABLET PO SCH ×2 (08:11→16:11)
[2019-11-10] MEDS: LISINOPRIL 5 MG TABLET PO SCH (08:11)
[2019-11-10] MEDS: FLUTICASONE/VILANTEROL 200-25MCG/INH INH SCH (08:12)
[2019-11-10] MEDS: TIOTROPIUM BROMIDE 18 MCG/INH INH SCH (08:12)
[2019-11-10] MEDS ORDERED: CLOPIDOGREL 75 MG TABLET PO SCH (09:00)
[2019-11-10] MEDS ORDERED: OMNIPAQUE 350 MG/ML, 75ML BOTTLE ONE (11:50)
[2019-11-10 14:14] VITALS: BP 97/61
[2019-11-10] MEDS: ALBUTEROL-IPRATROPIUM MDI INH INH SCH ×2 (18:00→19:39)
[2019-11-10 19:13] VITALS: BP 101/61
[2019-11-10] MEDS ORDERED: CARV3.1212 PO (21:27)
[2019-11-10] MEDS ORDERED: DIPH25CA61 PO (21:27)
[2019-11-10] MEDS: ATORVASTATIN 80 MG TABLET PO SCH (21:35)
[2019-11-10] MEDS: CARVEDILOL 6.25 MG TABLET PO SCH (21:37)
[2019-11-10] MEDS: VANCOMYCIN 1,400 MG in SODIUM CHLORIDE 0.9% 250 ML IV SCH (22:54)
[2019-11-11 00:17] VITALS: BP 106/71
[2019-11-11] MEDS: AMPICILLIN/SULBACTAM 3 GM in SODIUM CHLORIDE 0.9% 100 ML IV SCH ×4 (03:44→22:31)
[2019-11-11 06:28] VITALS: BP 102/65
[2019-11-11] MEDS: ALBUTEROL-IPRATROPIUM MDI INH INH SCH ×4 (06:31→21:00)
[2019-11-11] MEDS: HEPARIN 5,000 UNITS/ML, 1ML SQ SCH ×3 (06:31→21:06)
[2019-11-11] MEDS: LISINOPRIL 5 MG TABLET PO SCH (07:32)
[2019-11-11] MEDS: FLUTICASONE/VILANTEROL 200-25MCG/INH INH SCH (09:00)
[2019-11-11] MEDS: TIOTROPIUM BROMIDE 18 MCG/INH INH SCH (09:00)
[2019-11-11] MEDS: SENNA/DOCUSATE TABLET PO SCH (09:00)
[2019-11-11] MEDS: FERROUS SULFATE 325 MG TABLET PO SCH ×2 (09:34→16:33)
[2019-11-11] MEDS ORDERED: ALBUTEROL HFA 90 MCG/SPRAY INH PRN (12:00)
[2019-11-11 13:09] VITALS: BP 112/71
[2019-11-11 19:39] VITALS: BP 114/68
[2019-11-11] MEDS: ATORVASTATIN 80 MG TABLET PO SCH (21:06)
[2019-11-11] MEDS: CARVEDILOL 6.25 MG TABLET PO SCH (21:06)
[2019-11-11] MEDS: VANCOMYCIN 1,400 MG in SODIUM CHLORIDE 0.9% 250 ML IV SCH (23:23)
[2019-11-12 01:06] VITALS: BP 106/69
[2019-11-12] MEDS: AMPICILLIN/SULBACTAM 3 GM in SODIUM CHLORIDE 0.9% 100 ML IV SCH ×4 (04:38→22:16)
[2019-11-12 07:11] VITALS: BP 120/73
[2019-11-12] MEDS: FERROUS SULFATE 325 MG TABLET PO SCH ×2 (08:40→16:22)
[2019-11-12] MEDS: SENNA/DOCUSATE TABLET PO SCH (08:40)
[2019-11-12] MEDS: LISINOPRIL 5 MG TABLET PO SCH (08:40)
[2019-11-12] MEDS: HEPARIN 5,000 UNITS/ML, 1ML SQ SCH ×2 (08:41→16:22)
[2019-11-12] MEDS: ALBUTEROL-IPRATROPIUM MDI INH INH SCH ×4 (08:42→20:21)
[2019-11-12] MEDS: TRELEGY ELLIPTA INH SCH (08:42)
[2019-11-12 12:33] VITALS: BP 136/72
[2019-11-12] MEDS ORDERED: GADOTERATE 7.5 MMOL/15 ML SYR ONE (15:24)
[2019-11-12 18:38] VITALS: BP 101/66
[2019-11-12] MEDS: CARVEDILOL 6.25 MG TABLET PO SCH ×2 (20:20→20:21)
[2019-11-12] MEDS: ATORVASTATIN 80 MG TABLET PO SCH (20:20)
[2019-11-13 00:16] VITALS: BP 104/66
[2019-11-13] MEDS: HEPARIN 5,000 UNITS/ML, 1ML SQ SCH ×3 (01:08→16:01)
[2019-11-13] MEDS: AMPICILLIN/SULBACTAM 3 GM in SODIUM CHLORIDE 0.9% 100 ML IV SCH ×4 (04:11→22:03)
[2019-11-13 07:20] VITALS: BP 101/64
[2019-11-13] MEDS: FERROUS SULFATE 325 MG TABLET PO SCH ×2 (08:15→16:01)
[2019-11-13] MEDS: SENNA/DOCUSATE TABLET PO SCH (08:15)
[2019-11-13] MEDS: LISINOPRIL 5 MG TABLET PO SCH (08:15)
[2019-11-13] MEDS: ALBUTEROL-IPRATROPIUM MDI INH INH SCH ×4 (08:16→20:30)
[2019-11-13] MEDS: TRELEGY ELLIPTA INH SCH (08:17)
[2019-11-13 12:26] VITALS: BP 94/59
[2019-11-13] MEDS: CARVEDILOL 6.25 MG TABLET PO SCH (20:29)
[2019-11-13] MEDS: ATORVASTATIN 80 MG TABLET PO SCH (20:30)
[2019-11-13 20:35] VITALS: BP 116/68
[2019-11-14] MEDS: HEPARIN 5,000 UNITS/ML, 1ML SQ SCH ×4 (00:14→23:55)
[2019-11-14 03:33] VITALS: BP 106/62
[2019-11-14] MEDS: AMPICILLIN/SULBACTAM 3 GM in SODIUM CHLORIDE 0.9% 100 ML IV SCH ×4 (03:35→22:09)
[2019-11-14] MEDS: ALBUTEROL-IPRATROPIUM MDI INH INH SCH ×4 (06:00→21:07)
[2019-11-14 07:06] VITALS: BP 95/58
[2019-11-14] MEDS: SENNA/DOCUSATE TABLET PO SCH (07:45)
[2019-11-14] MEDS: FERROUS SULFATE 325 MG TABLET PO SCH ×2 (07:45→15:35)
[2019-11-14] MEDS: LISINOPRIL 5 MG TABLET PO SCH (07:47)
[2019-11-14] MEDS: TRELEGY ELLIPTA INH SCH (07:48)
[2019-11-14 12:46] VITALS: BP 110/63
[2019-11-14 18:35] VITALS: BP 121/73
[2019-11-14] MEDS: ATORVASTATIN 80 MG TABLET PO SCH (21:07)
[2019-11-14] MEDS: CARVEDILOL 6.25 MG TABLET PO SCH (21:07)
[2019-11-15 00:03] VITALS: BP 101/64
[2019-11-15] MEDS: AMPICILLIN/SULBACTAM 3 GM in SODIUM CHLORIDE 0.9% 100 ML IV SCH ×4 (03:48→22:27)
[2019-11-15] MEDS: ALBUTEROL-IPRATROPIUM MDI INH INH SCH ×4 (06:20→20:03)
[2019-11-15 07:33] VITALS: BP 107/65
[2019-11-15] MEDS: LISINOPRIL 5 MG TABLET PO SCH (08:28)
[2019-11-15] MEDS: FERROUS SULFATE 325 MG TABLET PO SCH ×2 (08:28→16:17)
[2019-11-15] MEDS: HEPARIN 5,000 UNITS/ML, 1ML SQ SCH ×2 (08:29→16:18)
[2019-11-15] MEDS: TRELEGY ELLIPTA INH SCH (08:31)
[2019-11-15] MEDS: SENNA/DOCUSATE TABLET PO SCH (08:32)
[2019-11-15 12:34] VITALS: BP 116/67
[2019-11-15 18:52] VITALS: BP 108/52
[2019-11-15 19:58] VITALS: BP 109/69
[2019-11-15] MEDS: CARVEDILOL 6.25 MG TABLET PO SCH (20:03)
[2019-11-15] MEDS: ATORVASTATIN 80 MG TABLET PO SCH (20:03)
[2019-11-16 02:57] VITALS: BP 104/61
[2019-11-16] MEDS: AMPICILLIN/SULBACTAM 3 GM in SODIUM CHLORIDE 0.9% 100 ML IV SCH ×3 (03:46→16:54)
[2019-11-16] MEDS: ALBUTEROL-IPRATROPIUM MDI INH INH SCH ×3 (06:04→16:55)
[2019-11-16] MEDS ORDERED: EPINEPHRINE SYRINGE 0.1 MG/ML, 10ML ONE ×2 (08:00→19:54)
[2019-11-16] MEDS ORDERED: ATROPINE SYRINGE 0.1 MG/ML, 10ML ONE (08:00)
[2019-11-16 09:50] VITALS: BP 111/63
[2019-11-16] MEDS: TRELEGY ELLIPTA INH SCH (09:54)
[2019-11-16] MEDS: LISINOPRIL 5 MG TABLET PO SCH (09:54)
[2019-11-16] MEDS: SENNA/DOCUSATE TABLET PO SCH (09:54)
[2019-11-16] MEDS: HEPARIN 5,000 UNITS/ML, 1ML SQ SCH ×3 (09:54→16:54)
[2019-11-16] MEDS: FERROUS SULFATE 325 MG TABLET PO SCH ×2 (09:54→16:55)
[2019-11-16 13:11] VITALS: BP 110/69
[2019-11-16 18:40] VITALS: BP 114/66
[2019-11-16] MEDS ORDERED: AMIODARONE 50 MG/ML, 3ML ONE (19:54)
[2019-11-17] MEDS ORDERED: ASPIRIN 81 MG TABLET CHEW PO SCH (09:00)
[2019-11-17] MEDS ORDERED: CLOPIDOGREL 75 MG TABLET PO SCH (09:00)
== END 2019-11-16 22:40 | disposition expired | DRG 872 ==
LOC: ED 19:23 → EDIP 20:02 → 4NW 21:36
PROVIDERS: ADMIT Family Medicine; ATTEND Internal Medicine
PROC: 5A09357 Assistance with Respiratory Ventilation, Less than 24 Consecutive Hours, Continuous Positive Airway Pressure (ICD-10-PCS; principal; 2019-11-10)
PROC: 5A09357 Assistance with Respiratory Ventilation, Less than 24 Consecutive Hours, Continuous Positive Airway Pressure (ICD-10-PCS; 2019-11-11)
PROC: 5A09357 Assistance with Respiratory Ventilation, Less than 24 Consecutive Hours, Continuous Positive Airway Pressure (ICD-10-PCS; 2019-11-12)
PROC: 5A09357 Assistance with Respiratory Ventilation, Less than 24 Consecutive Hours, Continuous Positive Airway Pressure (ICD-10-PCS; 2019-11-13)
PROC: 5A09357 Assistance with Respiratory Ventilation, Less than 24 Consecutive Hours, Continuous Positive Airway Pressure (ICD-10-PCS; 2019-11-16)
DX: A41.9 Sepsis, unspecified organism (principal); L03.313 Cellulitis of chest wall; J96.11 Chronic respiratory failure with hypoxia; E87.2 Acidosis; C44.529 Squamous cell carcinoma of skin of other part of trunk; Z51.5 Encounter for palliative care; R62.7 Adult failure to thrive; J44.9 Chronic obstructive pulmonary disease, unspecified; I73.9 Peripheral vascular disease, unspecified; I25.5 Ischemic cardiomyopathy; I25.10 Atherosclerotic heart disease of native coronary artery without angina pectoris; I10 Essential (primary) hypertension; G47.33 Obstructive sleep apnea (adult) (pediatric); E78.5 Hyperlipidemia, unspecified; D63.8 Anemia in other chronic diseases classified elsewhere; R53.81 Other malaise; Z90.12 Acquired absence of left breast and nipple; Z95.1 Presence of aortocoronary bypass graft; Z95.5 Presence of coronary angioplasty implant and graft; Z99.81 Dependence on supplemental oxygen; Z87.891 Personal history of nicotine dependence; Z86.79 Personal history of other diseases of the circulatory system; Z86.14 Personal history of Methicillin resistant Staphylococcus aureus infection; Z85.828 Personal history of other malignant neoplasm of skin; Z74.01 Bed confinement status; I25.2 Old myocardial infarction; I71.4 Abdominal aortic aneurysm, without rupture
CPT/HCPCS: 36415; 36600; 70553; 71045; 71260; 80048; 80053; 82728; 82803; 82962; 83540; 83550; 83735; 84466; 85025; 87040; 87070; 87077; 87186; 87205; 92950; 93005; 99285; G0378; J0295; J0461; J1644; J3370; Q9967; A9575; J0282; J7030; J7050